=== PATIENT | male | born 1975 | race Caucasian/White ===

== ENCOUNTER 2019-06-26 10:39 | Emergency (ER) | payer MEDICAID ==
[~2019-06-26] VITALS: Ht 177.8 cm; Wt 131.7 kg
[2019-06-26 10:44] VITALS: Ht 177.8 cm; Wt 131.7 kg
[2019-06-26 13:00] LABS: BASOPHIL % 0.8 % (0-2); PLATELET COUNT 233 x10^3mcL (130-400)
[2019-06-26 13:07] LABS: RED CELL DISTRIBUTION WIDTH 15.7 % (11.5-14.5)
[2019-06-26 13:17] LABS: CALCIUM 8.2 mg/dL (8.5-10.1); CARBON DIOXIDE 26.9 mmol/L (21-32); CHLORIDE SERUM 107 mmol/L (98-107); CREATININE SERUM 0.9 mg/dL (0.7-1.3); GFR1 > 60 mL/min; GLUCOSE SERUM 91 mg/dL (74-106); POTASSIUM SERUM 4.2 mmol/L (3.5-5.1); SODIUM SERUM 141 mmol/L (136-145)
[2019-06-26 13:25] LABS: ALKALINE PHOSPHATASE 82 U/L (46-116); ALT/SGPT 64 U/L (16-63); AMYLASE 53 U/L (25-115); AST/SGOT 49 U/L (15-37); BILIRUBIN TOTAL 0.2 mg/dL (0.20-1.00); CHOLESTEROL 140 mg/dL (<200); HDL CHOLESTEROL 53 mg/dL (40-60); LIPASE 126 IU/L (73-393); MAGNESIUM 1.9 mg/dL (1.8-2.4); TOTAL PROTEIN, SERUM 7.1 g/dL (6.4-8.2)
[2019-06-26 13:26] LABS: ALBUMIN 3.1 g/dL (3.4-5.0); T4(THYROXINE) 2.1 ug/dL (4.7-13.3)
[2019-06-26 14:05] LABS: microscopic required? NO
[2019-06-26 14:25] LABS: UA SPECIFIC GRAVITY >=1.030 (1.005-1.035); urine erythrocyte NEGATIVE (NEGATIVE)
[2019-06-26 15:00] LABS: AMPHETAMINE QUAL UR POSITIVE (See below)
[2019-06-26 16:09] VITALS: BP 160/91
== END 2019-06-26 16:09 | disposition home or self-care (01) ==
LOC: ED 10:39
PROVIDERS: Emergency Medicine
DX: R42 Dizziness and giddiness (principal); K62.5 Hemorrhage of anus and rectum; E03.9 Hypothyroidism, unspecified; E46 Unspecified protein-calorie malnutrition; N43.3 Hydrocele, unspecified; F17.210 Nicotine dependence, cigarettes, uncomplicated; L80 Vitiligo; Z68.41 Body mass index [BMI] 40.0-44.9, adult; Z88.0 Allergy status to penicillin; Z98.890 Other specified postprocedural states
CPT/HCPCS: 82962; 83880; 99406; J7030; J8597; Q0092